=== PATIENT | male | born 1975 ===

== ENCOUNTER 2019-02-15 19:31 | Emergency (ER) | payer OTHER ==
[~2019-02-15] VITALS: Ht 172.7 cm; Wt 81.6 kg
[~2019-02-15 19:31] MED LIST: AMOX1TAB12 PO; CLARITIN-D1 TAB.SR1 PO; FLAGYL PO; IMODIUM A-D2 MG PO; NASONEX17 GM NS
[2019-02-15] MEDS ORDERED: AMOX1TAB5 PO (20:15)
[2019-02-15] MEDS ORDERED: ALLEGRA-D 12 H1 EACH PO (20:15)
[2019-02-15] MEDS ORDERED: METH16TA PO (20:15)
== END 2019-02-15 21:19 | disposition home or self-care (01) ==
LOC: ER 19:31
DX: J32.0 Chronic maxillary sinusitis (principal)

== ENCOUNTER 2019-08-30 14:11 | Emergency (ER) | payer OTHER ==
[~2019-08-30] VITALS: Ht 175.3 cm; Wt 81.6 kg
[~2019-08-30 14:11] MED LIST changes: +ALLEGRA-D 12 H1 EACH PO; +AMOX1TAB5 PO; +METH16TA PO
== END 2019-08-30 19:37 | disposition home or self-care (01) ==
LOC: ER 14:11
DX: J06.9 Acute upper respiratory infection, unspecified (principal); B96.0 Mycoplasma pneumoniae [M. pneumoniae] as the cause of diseases classified elsewhere

== ENCOUNTER → 2020-04-20 | Emergency (ER) | payer OTHER ==
[~2020-04-20] VITALS: Ht 172.7 cm; Wt 81.6 kg
== END | disposition home or self-care (01) ==
LOC: ER 14:02
DX: J01.80 Other acute sinusitis (principal); G44.89 Other headache syndrome; F41.8 Other specified anxiety disorders